=== PATIENT | female | born 1975 | race Caucasian/White ===

== ENCOUNTER 2019-05-04 08:19 | Emergency (ER) | payer OTHER ==
[~2019-05-04] VITALS: Ht 170.2 cm; Wt 84.4 kg
[~2019-05-04 08:19] MED LIST: ACET-9525 PO; GLU500; HYDR-1095; SIMV-30
[2019-05-04 08:23] VITALS: BP 121/77
--- NOTE | 2019-05-04 08:26 | NUR ---
Pt taken to bed 8.
[2019-05-04] MEDS ORDERED: KETOROLAC 60 MG/2 ML VIAL IM ONE (08:35)
--- NOTE | 2019-05-04 08:41 | NUR ---
43/F TO ED C/O GENERALIZED CHEST PAIN SUDDEN ONSET YESTERDAY MORNING. PT REPORTS PAIN UPON MOVEMENT, PALPATION, AND BREATHING. DENIES ANY RECENT INJURY OR TRAUMA. LUNG SOUNDS CLEAR BILATERALLY, NORMAL S1S2 SOUNDS HEARD. PLACED ON TO OSD CLERK. IN BED FOR MSE, DR PIZARRO AT BEDSIDE.
--- NOTE | 2019-05-04 08:47 | NUR ---
RAD AT BEDSIDE FOR PORTABLE CXR.
--- NOTE | 2019-05-04 09:05 | NUR ---
PT RATES PAIN AT 5/10 POST TORADOL ADMIN.
[2019-05-04 10:15] VITALS: BP 108/78
== END 2019-05-04 10:15 | disposition home or self-care (01) ==
LOC: MED 08:19
DX: R07.89 Other chest pain (principal); J45.909 Unspecified asthma, uncomplicated; I10 Essential (primary) hypertension; I12.9 Hypertensive chronic kidney disease with stage 1 through stage 4 chronic kidney disease, or unspecified chronic kidney disease; N18.2 Chronic kidney disease, stage 2 (mild); E11.22 Type 2 diabetes mellitus with diabetic chronic kidney disease; Z79.84 Long term (current) use of oral hypoglycemic drugs; Z79.899 Other long term (current) drug therapy
CPT/HCPCS: 71045; 93005; 96372; 99283; J1885; Q0092